=== PATIENT | female | born 1990 | race African-American/Black ===

== ENCOUNTER 2018-06-12 21:06 | Emergency (ER) | payer BC, MEDICAID ==
[~2018-06-12] VITALS: Ht 165.1 cm; Wt 61.0 kg
[2018-06-13] MEDS ORDERED: BACITRACIN ZINC OINT UDPKT TOP ONE (00:30)
[2018-06-13] MEDS ORDERED: LIDOCAINE HCL/PF 1% 10 MG/ML 5ML VIAL IJ ONE (00:30)
[2018-06-13] MEDS ORDERED: TETANUS, DIPHTHERIA, PERTUSSIS VAC/PF 0.5ML (>7YR OLD) IM ONE (00:30)
[2018-06-13 01:27] LABS: BASOPHILS % 0.3 % (0.0-2.0); EOSINOPHILS % 0.1 % (0.0-5.0); HEMATOCRIT. 38.9 % (36.0-48.0); HEMOGLOBIN. 12.9 g/dL (12.0-16.0); MEAN CORPUSCULAR HEMOGLOBIN 30.6 pg (28.0-32.0); MEAN CORPUSCULAR VOLUME 92.5 fL (81.0-99.0); MEAN PLATELET VOLUME 8.5 fl (7.4-10.4); MONOCYTES % 7.3 % (2.0-8.0); NEUTROPHILS % 63.3 % (40.0-76.0); PLATELET 272 x1000/uL (130-400); RED BLOOD CELL COUNT 4.21 mill/uL (4.2-5.4); RED CELL DISTRIBUTION WIDTH 13.9 % (11.6-14.6)
[2018-06-13 01:28] LABS: CHLORIDE 108 mEq/L (98-107)
[2018-06-13 01:32] LABS: ETHANOL BLOOD < 10 mg/dL
[2018-06-13 01:58] LABS: *AMPHETAMINES SCREEN URINE NEGATIVE (NEGATIVE)
[2018-06-13 01:59] LABS: *BARBITURATES SCREEN URINE NEGATIVE (NEGATIVE); *BENZODIAZEPINES SCREEN URINE NEGATIVE (NEGATIVE); *COCAINE SCREEN URINE NEGATIVE (NEGATIVE); METHADONE URINE SCREEN NEGATIVE (NEGATIVE); OPIATES URINE SCREEN NEGATIVE (NEGATIVE)
[2018-06-13 02:00] LABS: CANNABINOID URINE SCREEN NEGATIVE (NEGATIVE); PHENCYCLIDINE URINE SCREEN NEGATIVE (NEGATIVE)
[2018-06-13 03:45] VITALS: BP 109/68
== END 2018-06-13 03:45 | disposition home or self-care (01) ==
LOC: ER 21:06
DX: S41.112A Laceration without foreign body of left upper arm, initial encounter (principal); X78.8XXA Intentional self-harm by other sharp object, initial encounter; Y93.89 Activity, other specified; Y92.9 Unspecified place or not applicable
CPT/HCPCS: 12004; 36415; 80048; 80305; 80307; 80329; 85025; 87186; 90471; 90715; 99284; J3490; Z7610

== ENCOUNTER 2018-06-23 14:38 | Emergency (ER) | payer BC, MEDICAID ==
[~2018-06-23] VITALS: Ht 165.1 cm; Wt 61.0 kg
[2018-06-23 17:56] VITALS: BP 109/77
== END 2018-06-23 17:57 | disposition home or self-care (01) ==
LOC: ER 14:38
DX: Z48.00 Encounter for change or removal of nonsurgical wound dressing (principal)
CPT/HCPCS: 99283

== ENCOUNTER 2018-06-29 18:15 | Emergency (ER) | payer BC, MEDICAID ==
[~2018-06-29] VITALS: Ht 165.1 cm; Wt 55.0 kg
[2018-06-29 18:31] VITALS: BP 119/83
== END 2018-06-29 20:40 | disposition home or self-care (01) ==
LOC: ER 18:15
DX: S61.512D Laceration without foreign body of left wrist, subsequent encounter (principal); X58.XXXD Exposure to other specified factors, subsequent encounter
CPT/HCPCS: 99281